=== PATIENT | female | born 1995 | race Caucasian/White ===

== ENCOUNTER 2018-01-31 04:33 | Emergency (ER) | payer SELFPAY ==
[~2018-01-31] VITALS: Ht 162.6 cm; Wt 56.1 kg
[~2018-01-31 04:33] MED LIST: PROZ20CA11 PO
[2018-01-31 04:36] VITALS: BP 121/81; PULSE 81; RESP 12; TEMP 98.9; O2SAT 100
[2018-01-31] MEDS ORDERED: AMOX500T PO (05:04)
[2018-01-31] MEDS ORDERED: IBUP-232 PO (05:04)
--- NOTE | 2018-01-31 05:06 | PD ---
HPI Chief Complaint: Oral / Dental Pain or Problem Time Seen by Provider: 04:48 Travel History International Travel<30 days: No Contact w/Intl Traveler<30days: No Traveled to known affect area: No History of Present Illness HPI The patient is a 22-year-old female that has had pain in tooth #1 for 2 weeks. She has not call a dentist. Her only medication is Prozac. She denies any fever. She denies possibility of . [facility] Past Medical History Medical History: Denies Significant Hx Anxiety: Yes Depression: Yes Immunizations Current: No Tetanus Vaccination: Never Vaccinated ?: Not LMP: 01/15/18 Social History Alcohol Use: Yes (3X'S PER WEEK ) Tobacco Use: Yes Substance Use: No Allergies-Medications (Allergen,Severity, Reaction): Coded Allergies: clarithromycin (Unverified Allergy, Unknown, HIVES, 06/12/17) Reported Meds & Prescriptions Reported Meds & Active Scripts Active Reported Prozac (Fluoxetine HCl) 20 Mg Cap 20 Mg PO DAILY Review of Systems Except as stated in HPI: all other systems reviewed are Neg Physical Exam Narrative GENERAL: Well-nourished, well-developed patient in moderate apparent distress with her dental pain. Her vital signs are normal.. SKIN: Focused skin assessment warm/dry. HEAD: Normocephalic. EYES: No scleral icterus. No injection or drainage. NECK: Supple, trachea midline. No JVD or lymphadenopathy. CARDIOVASCULAR: Regular rate and rhythm without murmurs, gallops, or rubs. RESPIRATORY: Breath sounds equal bilaterally. No accessory muscle use. GASTROINTESTINAL: Abdomen soft, non-tender, nondistended. MUSCULOSKELETAL: No cyanosis, or edema. BACK: Nontender without obvious deformity. No CVA tenderness. DENTAL: No loose or chipped teeth. No malocclusion. No drainable abscesses are noted. There is tenderness on tooth #1. No swelling is noted around the area. Data Data Last Documented VS Vital Signs Date Time Temp Pulse Resp B/P (MAP) Pulse Ox O2 Delivery O2 Flow Rate FiO2 01/31/18 04:36 98.9 81 12 121/81 (94) 100 MDM Medical Decision Making Medical Screen Exam Complete: Yes Emergency Medical Condition: Yes Medical Record Reviewed: Yes Differential Diagnosis Dental infection, drainable abscess, Capo's angina-extremely unlikely Narrative Course The patient has a dental infection. There is no drainable abscess present. Plan: The patient will be given Motrin 600 mg 3 times daily as well as a amoxicillin. The patient states she does not have insurance and would prefer the antibiotic that is free at [facility]. Diagnosis Primary Impression: Dental infection Additional Instructions: Take the antibiotic 1 tablet 3 times daily. There is a refill on the antibiotic to give you time to get a dental appointment. Follow-up with a dentist as soon as possible. Med/Other Pt SpecificInfo: Prescription(s) given Scripts Ibuprofen (Ibuprofen) 600 Mg Tab 600 MG PO TID, #33 TAB 0 Refills Prov: Oscar Anderson MD 01/31/18 Amoxicillin (Amoxicillin) 500 Mg Tab 500 MG PO TID for Infection for 10 Days, TAB 0 Refills Prov: Oscar Anderson MD 01/31/18 Disposition: 01 DISCHARGE HOME Condition: Stable Oscar Anderson MD Jan 31, 2018 05:06
[2018-01-31] MEDS ORDERED: AMOXICILLIN 875 MG TAB PO ONE (05:15)
[2018-01-31] MEDS ORDERED: KETOROLAC TROMETHAMINE 60 MG/2 ML (IM) VIAL IM ONE (05:15)
== END 2018-01-31 05:23 | disposition home or self-care (01) ==
LOC: PHED 04:33
DX: K04.7 Periapical abscess without sinus (principal); F41.8 Other specified anxiety disorders; Z72.0 Tobacco use
CPT/HCPCS: 96372; 99283; J1885